=== PATIENT | female | born 1995 | race Caucasian/White ===

== ENCOUNTER 2022-11-07 00:56 | Inpatient (IN) ==
[2022-11-07 01:43] LABS: Urine Appearance Cloudy; Urine Bilirubin Negative (Negative); Urine Blood 1+ (Negative); Urine Color Yellow; Urine Glucose Negative (Negative); Urine Ketones Negative (Negative); Urine Nitrite Negative (Negative); Urine Protein 3+(>=500 mg/dL) (Negative); Urine Specific Gravity 1.018 (1.002-1.030); Urine Urobilinogen Negative (Negative)
[2022-11-07 01:45] LABS: Urine Amorphous Crystals Present (Absent); Urine Bacteria 1+ (Absent); Urine Red Blood Cell Trace(0-2/hpf) (Absent); Urine Squamous Epithelial Cell Present (Absent); Urine White Blood Cell 1+(6-10/hpf) (Absent)
[2022-11-07 01:55] LABS: Urine Creatinine Concentration 218.85 mg/dL (20.00-320.00)
[2022-11-07 02:19] LABS: Urine TP Creat Ratio 2.24 mg/mg
[2022-11-07] MEDS ORDERED: Lidocaine 1% VIAL 10 MG/ML 30 ML VIAL INJ PRN (02:24)
[2022-11-07] MEDS ORDERED: Calcium Gluconate 1 GM/10 ML VIAL (in Pyxis) IV PUSH PRN (02:24)
[2022-11-07] MEDS ORDERED: Buffered Lidocaine 1% SYRIN 1 ml INTRADERM ONE (02:24)
[2022-11-07] MEDS ORDERED: Lactated Ringers 1000 ml BAG 1,000 ML IV ONE (02:24)
[2022-11-07] MEDS ORDERED: Magnesium Sulfate OB PREMIX 6 GM/150 ML BAG IV ONE (02:24)
[2022-11-07 02:27] LABS: ABS Basophils 0.1 10^3/uL (0.0-0.1); ABS Eosinophils 0.1 10^3/uL (0.0-0.5); ABS Lymphocytes 2.6 10^3/uL (1.0-4.8); ABS Monocytes 0.7 10^3/uL (0.0-0.9); ABS Neutrophils 7.2 10^3/uL (1.5-7.6); Eosinophil % 0.9 %; Hematocrit 32.1 % (35-45); Lymphocyte % 24.6 %; Mean Corpuscular Hemoglobin 27.8 pg (27-33); Mean Corpuscular Hgb Conc 34.3 g/dL (31-36); Mean Corpuscular Volume 80.9 fL (80-97); Mean Platelet Volume 9.6 fL (7.5-11.2); Platelet Count 324 10^3/uL (150-450); Red Blood Count 3.97 10^6/uL (3.63-4.92); Red Cell Distribution Width 14.4 % (12-17); White Blood Count 10.7 10^3/uL (3.8-11.8)
[2022-11-07 02:51] LABS: Calcium 8.1 mg/dL (8.6-10.3); Potassium 4.1 mmol/L (3.5-5.0); Total Bilirubin 0.2 mg/dL (0.2-1.0)
[2022-11-07 02:57] LABS: Albumin/Globulin Ratio 1.2 (1-3); Creatinine, Serum 0.84 mg/dL (0.51-0.95); Globulin 2.6 g/dL (2-4); Total Protein 5.6 g/dL (6.4-8.9); Uric Acid 7.6 mg/dL (2.3-6.6); eGFR CKD-EPI 99.5 (>60)
[2022-11-07] MEDS ORDERED: Magnesium Sulfate OB PREMIX 40 GM/1,000 ML BAG IVPB SCH (03:00)
[2022-11-07] MEDS ORDERED: Betamethasone 6 mg/ml 5 ml VIAL IM SCH (03:00)
[2022-11-07] MEDS: Lactated Ringers 1000 ml BAG 1,000 ML IV SCH ×2 (03:05→15:42)
[2022-11-07 03:43] LABS: Urine Benzodiazepine Screen None Detected (None Detect); Urine Cannabinoids Screen None Detected (None Detect); Urine Opiates Screen None Detected (None Detect)
[2022-11-07] MEDS ORDERED: Labetalol IV 5 MG/ML 20 ml VIAL IV PUSH ONE (09:53)
[2022-11-07] MEDS ORDERED: Labetalol IV 5 MG/ML 20 ml VIAL IV ONE (15:30)
[2022-11-07 15:45] LABS: ABS Lymphocytes 1.3 10^3/uL (1.0-4.8); ABS Monocytes 0.6 10^3/uL (0.0-0.9); ABS Neutrophils 10.3 10^3/uL (1.5-7.6); Hematocrit 32.2 % (35-45); Lymphocyte % 10.6 %; Mean Corpuscular Hemoglobin 27.4 pg (27-33); Mean Corpuscular Volume 80.6 fL (80-97); Mean Platelet Volume 9.2 fL (7.5-11.2); Platelet Count 339 10^3/uL (150-450); Red Blood Count 3.99 10^6/uL (3.63-4.92); Red Cell Distribution Width 14.3 % (12-17); White Blood Count 12.2 10^3/uL (3.8-11.8)
[2022-11-07 16:23] LABS: Creatinine, Serum 0.67 mg/dL (0.51-0.95); eGFR CKD-EPI 125.1 (>60)
[2022-11-07] MEDS ORDERED: Betamethasone 6 mg/ml 5 ml VIAL IM ONE (21:00)
[2022-11-08 10:51] LABS: ABS Basophils 0.1 10^3/uL (0.0-0.1); ABS Lymphocytes 1.6 10^3/uL (1.0-4.8); ABS Neutrophils 14.7 10^3/uL (1.5-7.6); ABS Nucleated RBC 0.01 10^3/ul; Hematocrit 31.6 % (35-45); Hemoglobin 10.8 g/dL (11.5-14.3); Mean Corpuscular Hemoglobin 27.7 pg (27-33); Mean Corpuscular Hgb Conc 34.2 g/dL (31-36); Mean Corpuscular Volume 80.9 fL (80-97); Mean Platelet Volume 9.4 fL (7.5-11.2); Platelet Count 360 10^3/uL (150-450); Red Blood Count 3.91 10^6/uL (3.63-4.92); Red Cell Distribution Width 14.2 % (12-17); White Blood Count 17.2 10^3/uL (3.8-11.8)
[2022-11-08 12:20] LABS: Creatinine, Serum 0.79 mg/dL (0.51-0.95); eGFR CKD-EPI 107.1 (>60)
[2022-11-08] MEDS ORDERED: Labetalol IV 5 MG/ML 20 ml VIAL IV PUSH ONE (17:00)
[2022-11-09 09:07] LABS: ABS Lymphocytes 2.8 10^3/uL (1.0-4.8); ABS Monocytes 1.3 10^3/uL (0.0-0.9); ABS Neutrophils 12.8 10^3/uL (1.5-7.6); ABS Nucleated RBC 0.02 10^3/ul; Eosinophil % 0.1 %; Hematocrit 33.3 % (35-45); Hemoglobin 11.1 g/dL (11.5-14.3); Lymphocyte % 16.6 %; Mean Corpuscular Hemoglobin 27.2 pg (27-33); Mean Corpuscular Hgb Conc 33.4 g/dL (31-36); Mean Corpuscular Volume 81.5 fL (80-97); Mean Platelet Volume 9.4 fL (7.5-11.2); Nucleated Red Blood Cells % 0.1 /100 WBC (0.0-0.4); Platelet Count 436 10^3/uL (150-450); Red Blood Count 4.09 10^6/uL (3.63-4.92); Red Cell Distribution Width 14.3 % (12-17)
[2022-11-09 09:48] LABS: Calcium 8.1 mg/dL (8.6-10.3); Potassium 4.4 mmol/L (3.5-5.0); Total Bilirubin 0.2 mg/dL (0.2-1.0)
[2022-11-09 09:54] LABS: Albumin/Globulin Ratio 1.2 (1-3); Creatinine, Serum 0.81 mg/dL (0.51-0.95); Globulin 2.6 g/dL (2-4); Total Protein 5.6 g/dL (6.4-8.9); eGFR CKD-EPI 103.9 (>60)
[2022-11-09] MEDS: Labetalol IV 5 MG/ML 20 ml VIAL IV PUSH PRN ×3 (11:39→12:10)
[2022-11-09] MEDS ORDERED: hydrALAZINE 20 mg/ml 1 ML Vial IV ONE (13:08)
[2022-11-09] MEDS ORDERED: hydrALAZINE 20 mg/ml 1 ML Vial IV IV SLOW PU PRN (13:08)
[2022-11-09] MEDS ORDERED: ceFOXitin 3 GM in NS 0.9% 100 ml BAG 100 ML IVPB ONE (13:55)
[2022-11-09] MEDS ORDERED: Sodium Citrate/Citric Acid LIQ 15 ML UDC PO ONE (14:35)
[2022-11-09] MEDS ORDERED: Sodium Citrate/Citric Acid LIQ 15 ML UDC ONE (14:38)
[2022-11-09] MEDS ORDERED: fentaNYL 100 mcg/2 ml 50 MCG/ML VIAL ONE (14:40)
[2022-11-09] MEDS ORDERED: Oxytocin 10 UNITS/ML 1 ML VIAL ONE ×2 (14:40→16:08)
[2022-11-09] MEDS ORDERED: Morphine PF AMP (0.5MG/ML) 5 MG/10 ML AMP ONE (14:40)
[2022-11-09] MEDS ORDERED: Lidocaine 2% PF 10 ML AMP (OR) ONE (15:08)
[2022-11-09] MEDS ORDERED: Dexamethasone IV 4 MG/ML VIAL 1 ml VIAL ONE (15:23)
[2022-11-09] MEDS ORDERED: Ondansetron 4 mg VIAL 2 MG/ML 2 ml VIAL ONE ×2 (15:23→15:26)
[2022-11-09] MEDS ORDERED: Acetaminophen IV 1 GM/100ML 1,000 MG/100 ML BAG IV PRN (15:35)
[2022-11-09] MEDS ORDERED: Metoclopramide 5 MG/ML VIAL (10 mg) IV PRN (15:35)
[2022-11-09] MEDS ORDERED: Naloxone 0.4 mg VIAL 0.4 mg/ml 1 ml VIAL IV PUSH PRN (15:35)
[2022-11-09] MEDS ORDERED: Ondansetron 4 mg VIAL 2 MG/ML 2 ml VIAL IV PRN (15:35)
[2022-11-09] MEDS ORDERED: Phenylephrine 40 mcg/mL 10mL (400mcg) SYRINGE ONE ×2 (15:39)
[2022-11-09] MEDS ORDERED: Carboprost Tromethamine 250 mcg 1 ml VIAL ONE (15:43)
[2022-11-09] MEDS ORDERED: [UNRECOGNIZED DRUG - OTHER] IV ONE (16:00)
[2022-11-09] MEDS ORDERED: MAGNESIUM SULFATE IV ONE (16:00)
[2022-11-09] MEDS ORDERED: hydrALAZINE 20 mg/ml 1 ML Vial IV IV SLOW PU ONE (16:39)
[2022-11-09] MEDS ORDERED: Carboprost Tromethamine 250 mcg 1 ml VIAL IM ONE (16:40)
[2022-11-09] MEDS ORDERED: Witch Hazel PAD JAR TOPICAL PRN (16:47)
[2022-11-09] MEDS ORDERED: Lactated Ringers 1000 ml BAG 1,000 ML IV SCH (17:00)
[2022-11-09] MEDS: Magnesium Sulfate OB DRIP 2 GM/HR IVPB SCH (17:06)
[2022-11-09 21:02] LABS: Urine Appearance Cloudy; Urine Bilirubin Negative (Negative); Urine Blood 1+ (Negative); Urine Color Yellow; Urine Glucose Negative (Negative); Urine Ketones Negative (Negative); Urine Nitrite Negative (Negative); Urine Protein 3+(>=500 mg/dL) (Negative); Urine Specific Gravity 1.015 (1.002-1.030); Urine Urobilinogen Negative (Negative)
[2022-11-09 21:13] LABS: Urine Bacteria 1+ (Absent); Urine Red Blood Cell Trace(0-2/hpf) (Absent); Urine Squamous Epithelial Cell Present (Absent); Urine White Blood Cell Trace(0-5/hpf) (Absent)
[2022-11-09] MEDS ORDERED: Dexamethasone IV 4 MG/ML VIAL 1 ml VIAL IV SLOW PU ONE (22:00)
[2022-11-09] MEDS ORDERED: Ondansetron 4 mg VIAL 2 MG/ML 2 ml VIAL IV ONE (22:00)
[2022-11-09] MEDS ORDERED: Labetalol IV 5 MG/ML 20 ml VIAL IV PUSH PRN (23:45)
[2022-11-10] MEDS: Lactated Ringers 1000 ml BAG 1,000 ML IV SCH (02:35)
[2022-11-10 08:34] LABS: ABS Basophils 0.1 10^3/uL (0.0-0.1); ABS Lymphocytes 3.2 10^3/uL (1.0-4.8); ABS Monocytes 1.3 10^3/uL (0.0-0.9); ABS Neutrophils 17.6 10^3/uL (1.5-7.6); ABS Nucleated RBC 0.01 10^3/ul; Eosinophil % 0.1 %; Hematocrit 32.5 % (35-45); Hemoglobin 11.1 g/dL (11.5-14.3); Lymphocyte % 14.5 %; Mean Corpuscular Hemoglobin 27.8 pg (27-33); Mean Corpuscular Hgb Conc 34.1 g/dL (31-36); Mean Corpuscular Volume 81.5 fL (80-97); Mean Platelet Volume 8.8 fL (7.5-11.2); Platelet Count 387 10^3/uL (150-450); Red Blood Count 3.99 10^6/uL (3.63-4.92); Red Cell Distribution Width 14.2 % (12-17); White Blood Count 22.3 10^3/uL (3.8-11.8)
[2022-11-10] MEDS: Magnesium Sulfate OB DRIP 2 GM/HR IVPB SCH (11:27)
[2022-11-10] MEDS: Enoxaparin 60 MG/0.6 ML SYR SUBCUT SCH (19:34)
[2022-11-11] MEDS ORDERED: Tetan/Diph/Pertus SYR(Tdap) 0.5 ML SYR(BOOSTRIX) use SYR contains LATEX IM ONE (16:31)
[2022-11-11] MEDS: Enoxaparin 60 MG/0.6 ML SYR SUBCUT SCH (19:28)
[2022-11-12] MEDS: Enoxaparin 60 MG/0.6 ML SYR SUBCUT SCH (20:33)
[2022-11-13] MEDS ORDERED: Tetan/Diph/Pertus SYR(Tdap) 0.5 ML SYR(BOOSTRIX) use SYR contains LATEX IM ONE (12:00)
[2022-11-13 14:11] VITALS: BP 136/74
[2022-11-13 14:38] LABS: Varicella IgG Antibody Index <0.2; Varicella-Zoster IgG Antibody Negative
== END 2022-11-13 14:40 | disposition home or self-care (01) | DRG 540 ==
LOC: MCHOBOUT 00:56 → MCHOB 02:40
PROVIDERS: ADMIT Obstetrics & Gynecology; ATTEND Obstetrics & Gynecology